=== PATIENT | male | born 1960 | race Caucasian/White ===

== ENCOUNTER → 2020-10-30 16:56 | Outpatient (CLI) | payer BC, SELFPAY ==
--- NOTE | ~2020-10-30 | XR_ITS ---
XR knee RT 3V 10/30/2020 17:42 INDICATION: Right knee pain PROCEDURE: 3 views right knee COMPARISON: No prior studies for comparison. FINDINGS: Fracture, dislocation or subluxation is not identified. The soft tissues appear within norm al limits. No foreign bodies are identified. IMPRESSION: 1: NO ACUTE BONE OR JOINT ABNORMALITY IDENTIFIED. Reviewed, dictated and finalized at location A.
== END ==
PROVIDERS: PCP Family Medicine; Visit Provider Physician Assistant
DX: M25.561 Pain in right knee (principal)
CPT/HCPCS: 73562